=== PATIENT | female | born 1985 | race African-American/Black ===

== ENCOUNTER 2024-03-25 10:36 | Emergency (ER) | payer OTHER, MEDICAID ==
[~2024-03-25] VITALS: Ht 172.7 cm; Wt 79.4 kg
[2024-03-25 11:07] LABS: BASO % 0.5 % (0.0-1.0); EOS # 0.6 10*3/uL (0.0-0.4); EOS % 10.6 % (1.0-4.0); HEMATOCRIT 41.6 % (37.0-47.0); LYMPH # 1.7 10*3/uL (1.3-4.4); LYMPH % 30.1 % (27.0-41.0); MEAN CELL VOLUME 90.2 fl (81.0-99.0); MEAN CORPUSCULAR HGB 28.9 pg (27.0-31.0); MEAN PLATELET VOLUME 11.1 fl (9.6-12.3); MONO # 0.4 10*3/uL (0.1-1.0); MONO % 6.9 % (3.0-9.0); NEUT # 2.9 10*3/uL (2.3-7.9); NEUT % 51.9 % (47.0-73.0); PLATELET COUNT AUTOMATED 325 10*3/uL (130-400); RED BLOOD COUNT 4.61 10*6/uL (4.10-5.10); RED CELL DISTRI WIDTH 12.4 % (0-14.5); WHITE BLOOD COUNT 5.7 10*3/uL (4.8-10.8)
[2024-03-25 11:28] LABS: ALKALINE PHOSPHATASE 68 U/L (46-116); BUN 5 mg/dl (9-23); CHLORIDE 106 mmol/L (98-107); POTASSIUM 3.6 mmol/L (3.4-5.1); SGPT/ALT 13 U/L (5-49); TOTAL PROTEIN 7.7 gm/dL (6.0-8.0)
[2024-03-25] MEDS ORDERED: PREDNISONE50 MG PO (12:51)
[2024-03-25] MEDS ORDERED: DIPHENHYDRAMINE50 M1 PO (12:51)
== END 2024-03-25 12:57 | disposition home or self-care (01) ==
LOC: ED 10:36
PROVIDERS: Internal Medicine
DX: J30.2 Other seasonal allergic rhinitis (principal); Z20.822 Contact with and (suspected) exposure to COVID-19; R07.89 Other chest pain; Z88.0 Allergy status to penicillin; Z91.010 Allergy to peanuts